=== PATIENT | female | born 1930 | race Asian ===

== ENCOUNTER 2019-07-04 19:11 | Inpatient (IN) | payer MEDICARE, MEDICAID ==
[~2019-07-04] VITALS: Ht 157.5 cm; Wt 59.9 kg
[2019-07-04 19:11] VITALS: BP 140/80
[~2019-07-04 19:11] MED LIST: COLACE100 MG ORAL; LOVENOX10 M4 SUBQ; MAALOX ADVANCE770 ML PO; MOBIC7.5 MG ORAL; NEURONTIN600 MG ORAL; SENNA8.6 M2 PO
--- NOTE | 2019-07-04 19:12 | NUR ---
ED Nurse Note: PT brought into ED by RA [id number] from [facility] c/o surgical site bleeding ( left upper arm with jt.) . patient had surgery on 06/26/2019 for a ORIF L hymerus periprosthetic fracture. per ems, bleeeding started about an hour ago. pt is alert x4. family member at [facility].
--- NOTE | 2019-07-04 19:14 | Emergency Room Report ---
History of Present Illness General Chief Complaint: General Complaint Source: Patient, Medical Record Present Illness HPI 88-year-old female presents with left arm pain and bleeding that started today, unknown exact time., Patient has been bleeding through her postsurgical wounds , she had surgery to her left humerus after a mechanical slip and fall her surgery was at [facility], patient presents with left arm bleeding and pain no known aggravating relieving factors severity is severe, constant patient presents for evaluation Allergies: Coded Allergies: No Known Allergies (Unverified , 07/04/19) Patient History Past Medical History: see triage record Last Menstrual Period: n/a Reviewed Nursing Documentation: PMH: Agreed; PSxH: Agreed Nursing Documentation-PMH Past Medical History: No History, Except For Hx Hypertension: Yes Review of Systems All Other Systems: negative except mentioned in HPI Physical Exam Vital Signs Date Time Temp Pulse Resp B/P (MAP) Pulse Ox O2 Delivery O2 Flow Rate FiO2 07/04/19 19:03 98.4 81 146/85 (105) 99 Room Air Sp02 EP Interpretation: reviewed, normal General Appearance: alert, moderate distress Head: normocephalic, atraumatic Eyes: bilateral eye PERRL, bilateral eye EOMI ENT: uvula midline, moist mucus membranes Neck: supple, thyroid normal, supple/symm/no masses Respiratory: lungs clear, no respiratory distress, no retraction, no accessory muscle use Cardiovascular #1: normal peripheral pulses, regular rate, rhythm, no edema, no gallop, no murmur Gastrointestinal: non tender, soft, no guarding, no rebound Musculoskeletal: other - Left upper extremity: 2+ radial pulses, tenderness to palpation along the postsurgical wound clean dry intact, will dressings in blood no active extravasation or bleed radial median ulnar nerve intact Neurologic: alert, oriented x3 Psychiatric: anxious Skin: no rash, warm/dry Medical Decision Making Diagnostic Impression: Primary Impression: Left arm pain Additional Impression: Postoperative complication Qualified Codes: M96.830 - Postprocedural hemorrhage of a musculoskeletal structure following a musculoskeletal system procedure ER Course 88-year-old female presents with left arm pain, requiring multiple doses of pain medication We will admit patient for pain control Patient admitted to Dr. Wilson Laboratory Tests Test 07/04/19 19:20 White Blood Count 10.8 K/UL (4.8-10.8) Red Blood Count 2.95 M/UL (4.20-5.40) L Hemoglobin 8.2 G/DL (12.0-16.0) L Hematocrit 26.9 % (37.0-47.0) L Mean Corpuscular Volume 91 FL (80-99) Mean Corpuscular Hemoglobin 27.7 PG (27.0-31.0) Mean Corpuscular Hemoglobin Concent 30.4 G/DL (32.0-36.0) L Red Cell Distribution Width 20.5 % (11.6-14.8) H Platelet Count 241 K/UL (150-450) Mean Platelet Volume 5.7 FL (6.5-10.1) L Neutrophils (%) (Auto) 70.5 % (45.0-75.0) Lymphocytes (%) (Auto) 17.7 % (20.0-45.0) L Monocytes (%) (Auto) 7.3 % (1.0-10.0) Eosinophils (%) (Auto) 2.7 % (0.0-3.0) Basophils (%) (Auto) 1.8 % (0.0-2.0) Prothrombin Time 9.5 SEC (9.30-11.50) Prothrombin Time INR 0.9 (0.9-1.1) Activated Partial Thromboplast Time 20 SEC (23-33) L Sodium Level 139 MMOL/L (136-145) Potassium Level 4.5 MMOL/L (3.5-5.1) Chloride Level 105 MMOL/L (98-107) Carbon Dioxide Level 25 MMOL/L (21-32) Anion Gap 10 mmol/L (5-15) Blood Urea Nitrogen 23 mg/dL (7-18) H Creatinine 1.0 MG/DL (0.55-1.30) Estimate Glomerular Filtration Rate 52.5 mL/min (>60) Glucose Level 171 MG/DL (74-106) H Calcium Level 8.8 MG/DL (8.5-10.1) Total Bilirubin 0.2 MG/DL (0.2-1.0) Aspartate Amino Transferase (AST) 25 U/L (15-37) Alanine Aminotransferase (ALT) 34 U/L (12-78) Alkaline Phosphatase 66 U/L (46-116) Total Protein 7.1 G/DL (6.4-8.2) Albumin 3.4 G/DL (3.4-5.0) Globulin 3.7 g/dL Albumin/Globulin Ratio 0.9 (1.0-2.7) L Other X-Ray Diagnostic Results Other X-Ray Diagnostic Results : X-Ray ordered: Left humerus # of Views/Limited Vs Complete: 2 View Indication: Pain EP Interpretation: Yes Last Vital Signs Date Time Temp Pulse Resp B/P (MAP) Pulse Ox O2 Delivery O2 Flow Rate FiO2 07/04/19 19:03 98.4 81 146/85 (105) 99 Room Air Disposition: ADMITTED INPATIENT Condition: Stable Anatoly Quiroga MD Jul 04, 2019 19:14
[2019-07-04] MEDS ORDERED: Morphine Sulfate 4mg/ml Inj (IV USE ONLY) IVP ONE (19:15)
--- NOTE | 2019-07-04 19:23 | NUR ---
ED Nurse Note: PT blood sample sent down to lab.
[2019-07-04 19:40] LABS: BASOPHILS % (AUTO) 1.8 % (0.0-2.0); EOSINOPHILS % (AUTO) 2.7 % (0.0-3.0); HEMATOCRIT 26.9 % (37.0-47.0); HEMOGLOBIN 8.2 G/DL (12.0-16.0); LYMPHOCYTES % (AUTO) 17.7 % (20.0-45.0); MEAN CORPUSCULAR VOLUME 91 FL (80-99); MONOCYTES % (AUTO) 7.3 % (1.0-10.0); NEUTROPHILS % (AUTO) 70.5 % (45.0-75.0); PLATELET COUNT 241 K/UL (150-450); RED BLOOD COUNT 2.95 M/UL (4.20-5.40); RED CELL DISTRIBUTION WIDTH 20.5 % (11.6-14.8); WHITE BLOOD COUNT 10.8 K/UL (4.8-10.8)
[2019-07-04 19:50] LABS: INR 0.9 (0.9-1.1)
[2019-07-04 21:03] LABS: ANION GAP 10 mmol/L (5-15); BLOOD UREA NITROGEN 23 mg/dL (7-18); CALCIUM 8.8 MG/DL (8.5-10.1); CARBON DIOXIDE 25 MMOL/L (21-32); CHLORIDE 105 MMOL/L (98-107); POTASSIUM 4.5 MMOL/L (3.5-5.1); SODIUM 139 MMOL/L (136-145)
--- NOTE | 2019-07-04 21:05 | NUR ---
ED Nurse Note: Report given to ASROJ jimenez
[2019-07-04 21:07] LABS: ALANINE AMINOTRANSFERASE 34 U/L (12-78); ALBUMIN 3.4 G/DL (3.4-5.0); ALBUMIN/GLOBULIN RATIO 0.9 (1.0-2.7); ALKALINE PHOSPHATASE 66 U/L (46-116); ASPARTATE AMINO TRANSFERASE 25 U/L (15-37); BILIRUBIN,TOTAL 0.2 MG/DL (0.2-1.0)
--- NOTE | 2019-07-04 21:15 | NUR ---
NURSE NOTES: Received Report from SAROJ Rooney from Er. Pt admitted for intractables WARREN pain. No known allergies. PT is a/ox4, breaths even regular unlabored at RA.Pt c/o of pain of /10 will provide medication when Md is notified. Pt has a Rt AC with no i.v fluids running. .skin otherwise except for the surgical site of WARREN . WARREN swollen s/p surgery on 06/26/19 clean no active bleeding, pt is continent both bowel and bladder, Will continue to monitor
--- NOTE | 2019-07-04 22:00 | NUR ---
called and left msg For Md for new admit orders
--- NOTE | 2019-07-04 22:26 | NUR ---
Received call back from . orders received and carried
[2019-07-04] MEDS ORDERED: HYDROcodone/Acetamin 5/325 tab ORAL PRN (22:30)
[2019-07-04] MEDS ORDERED: Milk of Magnesia 30ml Ud ORAL PRN (22:30)
[2019-07-05] VITALS: BP 119/54
[2019-07-05] MEDS: Morphine Sulfate 2mg/ml Inj(IV/IM USE ONLY) IVP PRN ×3 (03:14→18:09)
[2019-07-05 04:00] VITALS: BP 123/56
[2019-07-05 05:25] VITALS: BP 123/56
[2019-07-05] MEDS: NovoLOG Insulin Flexpen SUBQ SCH ×3 (06:21→16:30)
[2019-07-05] MEDS ORDERED: NovoLOG Insulin Flexpen SUBQ SCH (06:30)
[2019-07-05 08:00] VITALS: BP 137/59
--- NOTE | 2019-07-05 08:00 | NUR ---
NURSE NOTES: received report from SAROJ Holbrook. patient in bed. alert. oriented. verbally responsive. no respiratory distress noted. pain on left upper arm post surgical site. oozing serosanguineous drainage. swollen. elevated arm with pillow. IV on RAC 20g. running NS@75. bed in the lowest position and locked. call light within reach. will continue to provide plan of care.
--- NOTE | 2019-07-05 08:01 | NUR ---
HAND-OFF: Report given to Jonathan Mccormack.
[2019-07-05] MEDS ORDERED: Heparin 5000 units/ml inj SUBQ SCH (09:00)
[2019-07-05] MEDS ORDERED: Aspirin EC 81mg tab ORAL SCH (09:00)
[2019-07-05] MEDS: Docusate 100mg cap ORAL SCH ×2 (09:29→17:26)
--- NOTE | 2019-07-05 10:00 | NUR ---
NURSE NOTES: received call from [facility]. spoke to Thais. Dr. Eddy/surgeon will accept patient to see at the [facility]. She will contact Dr. Wilson and CM for transferring.
[2019-07-05 12:00] VITALS: BP 128/59
--- NOTE | 2019-07-05 12:30 | Diagnostic Imaging Report ---
Indication: Left upper arm pain Findings: 2 views of the left humerus were obtained. Postoperative views of the left humerus obtained. There are no preoperative examinations. There is a reverse shoulder arthroplasty demonstrated. In addition there are 2 compression plates with fixation screws spanning the entire diaphysis of the humerus. Cerclage wires also noted. Very little bit of the humerus is identified but there are some fracture fragments involving the diaphysis noted. Skin jt overlying demonstrated. Bones appear osteopenic. IMPRESSION: Status post open reduction internal fixation of a severely comminuted fracture of the left humerus as described above. Status post reverse total left shoulder arthroplasty.
--- NOTE | 2019-07-05 13:35 | NUR ---
NURSE NOTES: seen by Dr. Wilson. will order IV ATB and transfer to [facility].
--- NOTE | 2019-07-05 14:11 | NUR ---
TRANSFER UPDATE: PATIENT IS ON THE LIST TO [facility] FOR HIGHER LEVEL OF CARE SPOKE TO TRANSFER CENTER PATIENT NEEDS TO BE FINANCIALLY CLEARED PRIOR [facility] TRANSFER CENT WILL CALL REVENUE FIELD AUDITOR OR FLOOR WHEN BED AVAILABLE T: [phone]
--- NOTE | 2019-07-05 15:03 | Consultation ---
History of Present Illness General Reason for Hospitalization: General Complaint Present Illness HPI 88-year-old female presents with left arm pain and bleeding that started yesterday, unknown exact time., Patient has been bleeding through her postsurgical wounds, she had surgery to her left humerus after a mechanical slip and fall her surgery was at [facility], patient presents with left arm bleeding and pain no known aggravating relieving factors severity is severe, constant patient presents for evaluation patient presents with her family member who helps with history. She had surgery on June 26 and was recovering well in rehab facility until drainage from wound once dressings were removed recently. She was admitted further care management and surgery called to evaluate and assist with care. Patient seen, patient evaluated, chart reviewed. No nausea vomiting fever chills. Labs stable. Exam performed. Imaging reviewed. Allergies: Coded Allergies: No Known Allergies (Unverified , 07/04/19) Medication History Scheduled Docusate Sodium* (Colace*), 100 MG ORAL DAILY, (Reported) Enoxaparin* (Lovenox*), 40 MG SUBQ DAILY, (Reported) Gabapentin* (Neurontin*), 600 MG ORAL EVERY 8 HOURS, (Reported) Meloxicam* (Mobic*), 7.5 MG ORAL DAILY, (Reported) Miscellaneous Medications Mag Hydrox/Al Hydrox/Simeth (Maalox Advanced Suspension), 770 ML PO, (Reported) Sennosides (Senna), 8.6 MG PO, (Reported) Patient History History Provided By: Patient, Family Member, Medical Record, PMD Healthcare decision maker Resuscitation status Advanced Directive on File No Past Medical/Surgical History Past Medical/Surgical History: (1) Postoperative complication (2) Left arm pain Review of Systems Review of Symptoms General ROS: no weight loss or fever Psychological ROS: no depression or mood changes, no memory loss Ophthalmic ROS: no visual changes or eye irritation ENT ROS: no nasal congestion, hearing loss, dizziness Allergy and Immunology ROS: no allergic symptoms or urticaria Hematological and Lymphatic ROS: no swollen glands, unusual bleeding or bruising Endocrine ROS: no polyuria, polydipsia, weight changes, temperature intolerance Respiratory ROS: no cough, shortness of breath, or wheezing Cardiovascular ROS: no chest pain or dyspnea on exertion Gastrointestinal ROS: denies abdominal pain, bright red blood in stool. Musculoskeletal ROS: no myalgias or arthralgias Neurological ROS: no TIA or stroke symptoms Dermatological ROS: no new or changing skin lesions, rashes or pruritis Physical Exam Physical Exam General appearance: alert, cooperative, no distress, appears stated age Head: Normocephalic, without obvious abnormality, atraumatic Eyes: conjunctivae/corneas clear. PERRL, EOM's intact. Fundi benign Throat: Lips, mucosa, and tongue normal. Teeth and gums normal Neck: supple, symmetrical, trachea midline, no adenopathy, thyroid: not enlarged, symmetric, no tenderness/mass/nodules, no carotid bruit and no JVD Lungs: clear to auscultation bilaterally Heart: regular rate and rhythm, S1, S2 normal, no murmur, click, rub or gallop Abdomen: soft, non-tender. Bowel sounds normal. No masses, no organomegaly Extremities: Left arm long extended upper extremity incision with jt in place currently clean and dry edema swelling and some underlying fluid collection probably hematoma identified. No signs of active infection. No active drainage currently. Pulses: 2+ and symmetric Skin: Skin color, texture, turgor normal. No rashes or lesions Neurologic: Grossly normal Last 24 Hour Vital Signs Date Time Temp Pulse Resp B/P (MAP) Pulse Ox O2 Delivery O2 Flow Rate FiO2 07/05/19 12:00 98.1 77 18 128/59 (82) 94 07/05/19 09:00 Room Air 07/05/19 08:00 98.9 79 20 137/59 (85) 94 07/05/19 05:25 98.8 81 16 123/56 (78) 95 07/05/19 04:00 98.8 81 16 123/56 (78) 95 07/05/19 00:00 98.6 72 16 97 07/05/19 00:00 98.6 72 16 119/54 (75) 97 07/04/19 22:37 Room Air 07/04/19 22:30 Room Air 07/04/19 19:11 98.4 85 17 140/80 99 Room Air 07/04/19 19:11 85 17 Room Air 07/04/19 19:03 98.4 81 146/85 (105) 99 Room Air Intake and Output 07/04/19 07/05/19 19:00 07:00 Intake Total 800 ml Balance 800 ml Intake Oral 200 ml IV Total 600 ml # Voids 1 Laboratory Tests Test 07/04/19 19:20 White Blood Count 10.8 K/UL (4.8-10.8) Red Blood Count 2.95 M/UL (4.20-5.40) L Hemoglobin 8.2 G/DL (12.0-16.0) L Hematocrit 26.9 % (37.0-47.0) L Mean Corpuscular Volume 91 FL (80-99) Mean Corpuscular Hemoglobin 27.7 PG (27.0-31.0) Mean Corpuscular Hemoglobin Concent 30.4 G/DL (32.0-36.0) L Red Cell Distribution Width 20.5 % (11.6-14.8) H Platelet Count 241 K/UL (150-450) Mean Platelet Volume 5.7 FL (6.5-10.1) L Neutrophils (%) (Auto) 70.5 % (45.0-75.0) Lymphocytes (%) (Auto) 17.7 % (20.0-45.0) L Monocytes (%) (Auto) 7.3 % (1.0-10.0) Eosinophils (%) (Auto) 2.7 % (0.0-3.0) Basophils (%) (Auto) 1.8 % (0.0-2.0) Prothrombin Time 9.5 SEC (9.30-11.50) Prothromb Time International Ratio 0.9 (0.9-1.1) Activated Partial Thromboplast Time 20 SEC (23-33) L Sodium Level 139 MMOL/L (136-145) Potassium Level 4.5 MMOL/L (3.5-5.1) Chloride Level 105 MMOL/L (98-107) Carbon Dioxide Level 25 MMOL/L (21-32) Anion Gap 10 mmol/L (5-15) Blood Urea Nitrogen 23 mg/dL (7-18) H Creatinine 1.0 MG/DL (0.55-1.30) Estimat Glomerular Filtration Rate 52.5 mL/min (>60) Glucose Level 171 MG/DL (74-106) H Calcium Level 8.8 MG/DL (8.5-10.1) Total Bilirubin 0.2 MG/DL (0.2-1.0) Aspartate Amino Transf (AST/SGOT) 25 U/L (15-37) Alanine Aminotransferase (ALT/SGPT) 34 U/L (12-78) Alkaline Phosphatase 66 U/L (46-116) Total Protein 7.1 G/DL (6.4-8.2) Albumin 3.4 G/DL (3.4-5.0) Globulin 3.7 g/dL Albumin/Globulin Ratio 0.9 (1.0-2.7) L Microbiology Date/Time Source Procedure Growth Status 07/04/19 18:40 Rectum Received Height (Feet): 5 Height (Inches): 2.00 Weight (Pounds): 132 Medications Current Medications Medications (Trade) Dose Ordered Sig/Shanta Route PRN Reason Start Time Stop Time Status Last Admin Dose Admin Acetaminophen (Tylenol) 650 mg Q6H PRN ORAL Mild Pain/Temp > 100.5 07/04/19 22:30 08/03/19 22:29 Acetaminophen/ Hydrocodone Bitart ([place] 5/325) 1 tab Q6H PRN ORAL For Pain 07/04/19 22:30 07/11/19 22:29 07/05/19 04:42 Dextrose (Dextrose 50%) 25 ml Q30M PRN IV Hypoglycemia 07/04/19 22:30 08/03/19 22:29 Dextrose (Dextrose 50%) 50 ml Q30M PRN IV Hypoglycemia 07/04/19 22:30 08/03/19 22:29 Docusate Sodium (Colace) 100 mg TWICE A DAY ORAL 07/05/19 09:00 08/04/19 08:59 07/05/19 09:29 Gabapentin (Neurontin) 300 mg DAILY ORAL 07/05/19 09:00 08/04/19 08:59 07/05/19 09:29 Gabapentin (Neurontin) 600 mg BEDTIME ORAL 07/04/19 22:30 08/03/19 22:29 07/04/19 23:55 Heparin Sodium (Porcine) (Heparin 5000 units/ml) 5,000 units EVERY 12 HOURS SUBQ 07/05/19 09:00 08/04/19 08:59 Insulin Aspart (NovoLOG) BEFORE MEALS AND HS SUBQ 07/05/19 06:30 08/04/19 06:29 Iron Sucrose 100 mg/Sodium Chloride 60 ml @ 240 mls/hr BEDTIME IV 07/05/19 21:00 07/09/19 21:14 Levothyroxine Sodium (Synthroid) 50 mcg DAILY@0630 ORAL 07/05/19 06:30 08/04/19 06:29 07/05/19 05:56 Magnesium Hydroxide (Mom) 30 ml DAILYPRN PRN ORAL Constipation 07/04/19 22:30 08/03/19 22:29 Morphine Sulfate (Morphine Sulfate) 2 mg Q4H PRN IVP For Pain 07/04/19 22:30 07/11/19 22:29 07/05/19 09:30 Ondansetron HCl (Zofran) 4 mg Q6H PRN IVP Nausea & Vomiting 07/04/19 22:30 08/03/19 22:29 07/05/19 03:13 Sodium Chloride 1,000 ml @ 75 mls/hr [id number] IV 07/04/19 22:30 08/03/19 22:29 07/05/19 13:21 Vancomycin HCl (Vanco rx to dose) 1 ea DAILY PRN MISC Per rx protocol 07/05/19 14:45 08/04/19 14:44 Vancomycin HCl 750 mg/Sodium Chloride 275 ml @ 183.333 mls/hr Q24H IVPB 07/05/19 16:00 07/10/19 15:59 Assessment/Plan Problem List: (1) Postoperative complication Assessment & Plan: Postoperative views of the left humerus obtained. There are no preoperative examinations. There is a reverse shoulder arthroplasty demonstrated. In addition there are 2 compression plates with fixation screws spanning the entire diaphysis of the humerus. Cerclage wires also noted. Very little bit of the humerus is identified but there are some fracture fragments involving the diaphysis noted. Skin jt overlying demonstrated. Bones appear osteopenic. IMPRESSION: Status post open reduction internal fixation of a severely comminuted fracture of the left humerus as described above. Status post reverse total left shoulder arthroplasty. ICD Codes: T81.9XXA - Unspecified complication of procedure, initial encounter SNOMED: [id number] Qualifiers: Qualified Codes: M96.830 - Postprocedural hemorrhage of a musculoskeletal structure following a musculoskeletal system procedure (2) Left arm pain Assessment & Plan: Patient with left arm pain likely secondary to surgical incision as well as postoperative edema and swelling. No signs of active infection identified. Currently not actively bleeding and no signs of a compartment syndrome. No acute surgical events indicated recommended. Will defer to Orth O for opening up jt and wound given underlying hardware Wash wounds daily, apply a dry dressing, wrap. Keep left upper extremity elevated. Will monitor closely thank you for alignment participate in patient's care ICD Codes: M79.602 - Pain in left arm SNOMED: [id number] Roman Case Jul 05, 2019 15:03
[2019-07-05 16:00] VITALS: BP 135/54
[2019-07-05] MEDS ORDERED: Vancomycin 750 MG in NS 275 ML IVPB SCH (16:00)
--- NOTE | 2019-07-05 16:41 | Diagnostic Imaging Report ---
Indication: Status post open reduction internal fixation of a severe comminuted fracture of the left humerus. Technique: Contiguous transaxial imaging of the left humerus was obtained in a Siemens Sensation [address] scanner. 2-D reconstructions were obtained. Soft tissue and bone windows generated. Automatic Exposure Control was utilized. Total Dose length Product (DLP): 203.5mGycm CT Dose Index Volume (CTDIvol): 4.8 mGy Comparison: Plain x-ray earlier today Findings: There is a reverse total shoulder prosthesis demonstrated. Alignment and position of the prosthesis is unremarkable. The humeral component of the prosthesis and long intramedullary pam are noted extending to about the level of the midhumerus. Comminuted bone fragments noted from about the proximal diaphysis through the mid diaphysis of the humerus. 2 additional compression plate with multiple fixation screws noted spanning almost the entire length of the humerus shaft. No abnormal interface lucencies are identified. There is generalized soft tissue swelling especially in the anterior part of the upper arm due to recent surgery. Skin jt still present. No abnormal fluid collection or large hematoma is identified. IMPRESSION: Status post open reduction internal fixation of a severe comminuted fracture of the left humeral shaft. Hardware alignment and position appear unremarkable. The CT scanner at [facility] is accredited by the [employer] and the scans are performed using dose optimization techniques as appropriate to a performed exam including Automatic Exposure control.
--- NOTE | 2019-07-05 16:58 | NUR ---
CASE MANAGEMENT: INITIAL REVIEW 88 YR OLD FEMALE FROM [facility] CC: GENERAL COMPLAINT SI:INTRACTABLE PAIN . LEFT ARM PAIN/ BLEED 98.5 81 146/85 99% ON RA IS:IV ZOFRAN X1 IV MORPHINE SULFATE \: 3E MED SURG UNIT
--- NOTE | 2019-07-05 17:09 | NUR ---
TRANSFER UPDATE PATIENT HAS BEEN ACCEPTED TO [facility] T:[phone] FOR NURSE TO NURSE REPORT ROOM# [address] [place] [address] AMBULANCE PICKUP TIME BETWEEN 6:15-6:30PM
--- NOTE | 2019-07-05 17:58 | NUR ---
6NURSE NOTES: report given [facility], spoke to SAROJ Martini.
--- NOTE | 2019-07-05 18:20 | NUR ---
NURSE NOTES: received call from [facility]. will be late 45mins. [id number]. patient and daughter are aware.
--- NOTE | 2019-07-05 19:25 | NUR ---
NURSE NOTES: patient discharged to [facility] via ambulance gurney. no respiratory distress noted. no pain at this time. keep IV site on RAC20g per hospital request. removed ID band. provide dc packet. checked and counted belongings with daughter. obtained sign. left upper arm with jt oozing draining. no actual bleeding noted. put gauze.
[2019-07-05] MEDS ORDERED: Iron Sucrose 100 MG in NS 55 ML IV SCH (21:00)
--- NOTE | 2019-07-05 21:30 | History and Physical Report ---
DATE OF ADMISSION: 07/04/2019 REASON FOR HOSPITALIZATION: Left upper extremity postop bleeding and pain. HISTORY OF PRESENT ILLNESS: This is an 88-year-old [place] female. She underwent left shoulder open reduction and internal fixation on a previously fractured shoulder about 2 weeks ago that occurred following a slip and fall episode. The surgery was completed at [facility] and the patient released to a alf facility. According to her daughter, she has been well with regard to pain control up until the morning of admission when she noted increasing swelling, pain, and drainage from the site. Nursing staff attempted to control drainage for some time, but noted no improvement and the patient was transferred to the hospital for further care. PAST MEDICAL HISTORY: Hypertension, hypothyroidism, osteoarthritis, osteoporosis, type 2 diabetes mellitus, and iron deficiency with anemia. MEDICATIONS: Prior to admission, reviewed and reconciled. ALLERGIES: None. FAMILY HISTORY: Noncontributory. SOCIAL HISTORY: Negative for smoking, alcohol, or substance abuse. CODE STATUS: Full. REVIEW OF SYSTEMS: No fevers or chills. No nausea, vomiting, or diarrhea. No history of myocardial infarction or chest pain. No history of heart failure. No history of asthma or abnormal blood clotting. No history of seizure or stroke. She does have mild dementia. The patient is on thyroid replacement. She is on oral therapy for diabetes and dietary control. There is no known history of lipid disorder. She has not had any frequency or incontinence. PHYSICAL EXAMINATION: GENERAL: A well-developed and well-nourished, in moderate pain. VITAL SIGNS: Blood pressure 146/85, pulse 81, and respirations 20. Afebrile. HEENT: Conjunctivae pink. Sclerae are anicteric. Oropharynx clear. NECK: Supple. Jugular venous pressure normal. LUNGS: Clear. No breast masses. CARDIAC: Regular rhythm and rate. Normal S1, S2 with no murmur, rub, or gallop. ABDOMEN: Soft and nontender. EXTREMITIES: Lower extremities with no edema. Good distal pulses. Left upper extremity has jt in place. Surgical site with scant drainage. There is redness and 1+ swelling and limited range of motion. IMAGING: X-ray of the left shoulder reveals open reduction and internal fixation of severely comminuted fracture and arthroplasty with no signs of free air. There was no signs of gas. IMPRESSION: 1. Possible early cellulitis in a postoperative setting of left shoulder open reduction and internal fixation, rule out abscess or compartment syndrome. 2. Anemia with hemoglobin of 8.2 and history of iron deficiency. 3. Hyperglycemia in the setting of type 2 diabetes mellitus. 4. Hypertension with adequate blood pressure control. 5. Mild prerenal azotemia. PLAN: 1. Cautious hydration. 2. Further imaging studies. 3. Consideration for antimicrobials. 4. Insulin coverage by sliding scale. 5. Orthopedic evaluation. Christian Wilson M.D. DR: FLORINDA JOB#: [id number] CC:
--- NOTE | 2019-07-07 09:52 | Discharge Summary ---
Discharge Summary Discharge Summary _ DATE OF ADMISSION: 07/04/2019 DATE OF DISCHARGE: 07/05/2019 DISCHARGED BY: Dr. Christian Arguello CONSULTANTS: Dr. Roman Case BRIEF HOSPITAL COURSE: Patient is an 88-year-old [place] female. She underwent left shoulder open reduction and internal fixation on previously fractured shoulder about 2 weeks ago that occurred after a slip and fall episode. Surgery was completed at [facility] and the patient was released to a [place] [facility] facility. According to her daughter. She had been well with regards to pain control up until the morning of admission. There was noted increasing swelling, pain and drainage from the site. Nursing staff attempted to control drainage, but noted no improvement. The patient was then transferred to the hospital for further care. She has medical history significant for hypertension, hypothyroidism, osteoarthritis, osteoporosis, type 2 diabetes mellitus and iron deficiency anemia. Upon evaluation at the ED, blood work was stable. X-ray of the left humerus showed status post open reduction internal fixation of a severely comminuted fracture of the left humerus. Status post reverse total left shoulder arthroplasty. There were no signs of free air. No signs of gas. Patient was admitted for possible early cellulitis in a postoperative site. She was given cautious hydration. She was noted to have hemoglobin of 8.2. Patient has a history of iron deficiency. Blood glucose was elevated. She was given insulin coverage by sliding scale. Continued on shelter medications. She was started on IV vancomycin. CT scan of the humerus showed hardware alignment and position to be unremarkable. No abnormal fluid collection. Surgical evaluation was done. There was no sign of active infection identified. There was no bleeding. No signs of compartment syndrome. Patient was given wound care. Patient was then transferred to [facility] for further evaluation by orthopedics. FINAL DIAGNOSES: Possible early cellulitis in postoperative setting of left shoulder open reduction and internal fixation Anemia with hemoglobin of 8.2 and history of iron deficiency. Hyperglycemia in setting of type 2 diabetes mellitus Hypertension with adequate blood pressure control Mild prerenal azotemia DISPOSITION: DC to [facility]. I have been assigned to complete a discharge summary on this account, I was not involved with the patient's management.--KAMINI Mohan Jacqueline Robles NP Jul 07, 2019 09:52
== END 2019-07-05 19:30 | disposition short-term general hospital (02) | DRG 863 ==
LOC: EDBD 19:11 → EMR 19:48 → 3E 19:53 → EDBEDREQ 20:27 → 3E 21:30
DX: T81.49XA Infection following a procedure, other surgical site, initial encounter (principal); L03.114 Cellulitis of left upper limb; R79.89 Other specified abnormal findings of blood chemistry; D50.9 Iron deficiency anemia, unspecified; I10 Essential (primary) hypertension; E11.65 Type 2 diabetes mellitus with hyperglycemia; M81.0 Age-related osteoporosis without current pathological fracture; E03.9 Hypothyroidism, unspecified
CPT/HCPCS: 36415; 80053; 82962; 85025; 85610; 85730; 86850; 86900; 86901; 87081; 96374; 96375; 99285; J1815; J2405